=== PATIENT | female | born 1965 | race Hispanic/Latino ===

== ENCOUNTER 2016-09-26 18:55 | Emergency (ER) | payer OTHER ==
[2016-09-26] MEDS ORDERED: TYLENOL ONE (19:49)
[2016-09-26] MEDS ORDERED: TYLENOL PO ONE (19:54)
[2016-09-26] MEDS ORDERED: CATAPRES ONE (21:15)
[2016-09-26] MEDS ORDERED: CATAPRES PO ONE (21:21)
[2016-09-26 21:23] VITALS: BP 212/103
--- NOTE | 2016-09-27 19:53 | ED Elopement Review ---
ED Pt Elopement review - Call Back decision Pt Call Back Decision: No action required
== END 2016-09-27 05:11 | disposition left against medical advice (07) ==
LOC: ED 18:55
DX: R51 Headache (principal); M54.2 Cervicalgia; M54.9 Dorsalgia, unspecified; Z53.21 Procedure and treatment not carried out due to patient leaving prior to being seen by health care provider; V89.0XXA Person injured in unspecified motor-vehicle accident, nontraffic, initial encounter; Y92.413 State road as the place of occurrence of the external cause; Y93.89 Activity, other specified; Y99.8 Other external cause status